=== PATIENT | male | born 1930 | race Caucasian/White ===

== ENCOUNTER 2016-07-14 16:31 | Inpatient (IN) | payer OTHER ==
[~2016-07-14] VITALS: Ht 175.3 cm; Wt 91.9 kg
--- NOTE | ~2016-07-14 | P ---
[facility] [place] [address] PROCEDURE REPORT Name: RAUL SAVAGE Room #: 209-P ADM IN M.R.#: [id number] Admission: 07/14/16 Attend Phys: Fiordaliza Clement Discharge: Date of : 31 Report #: [id number] THIS REPORT FOR: //name// CC: Farhat Freed CHIEF COMPLAINT: Nonhealing surgical wound, left medial thigh. REQUESTING PHYSICIAN: Dr. Padron. PROCEDURE: Incision and drainage of left medial thigh wound/abscess. REASON FOR PROCEDURE: The patient is status post coronary artery bypass grafting with vein harvesting in the left thigh, which subsequently became infected and a cellulitic with underlying purulent abscess, which was partially drained several days ago and now has significant tunnels both superior and inferior requiring further incision and drainage. PREPROCEDURE DIAGNOSES: 1. Nonhealing surgical wound, left medial thigh. 2. Status post vein harvest for coronary bypass grafting. 3. Status post vessel coronary bypass grafting. 4. History of left lower extremity cellulitis. PREPROCEDURE DIAGNOSES: 1. Nonhealing surgical wound, left medial thigh. 2. Status post vein harvest for coronary bypass grafting. 3. Status post vessel coronary bypass grafting. 4. History of left lower extremity cellulitis. PROCEDURE IN DETAIL: After timeout was taken, verbal consent was obtained. The patient had incision and drainage. both superiorly and inferiorly along the previous wound using a #10 blade. 1% lidocaine with epinephrine was used for anesthesia prior to an incision and drainage. The wound was extended 7 cm at 6 o'clock and 7 cm at 8. There was a small amount of purulent drainage noted underneath each tunnel. This was cleaned out using saline moistened gauze. There was also significant amount of granulation tissue within the wound bed itself. Bleeding was controlled easily with pressure and silver nitrate cauterization. The wound after the incision and drainage was 16 cm x 1.5 cm x 2.0 cm. The patient tolerated procedure well. After the procedure, the patient had the wound packed with pressure dressing, which will be left in place for next 24 hours in hopes getting a wound VAC placed within the next 1-2 days. ADDENDUM: After approximately 6 hours when packing and reevaluated the patient. The patient's wound was still clean, dry and dressing was intact. Once again, we will plan on hopefully the wound VAC placement in the next [address] [address] PROCEDURE REPORT Name: RAUL SAVAGE Room #: 209-P [facility] IN M.R.#: [id number] Admission: 07/14/16 Attend Phys: Fiordaliza Clement Discharge: Date of : 31 Report #: [id number] Incision and drainage was taken down to level of the subcutaneous tissue. <ELECTRONICALLY SIGNED> By: Byron Deng MD 07/25/16 1022 0757 1139 Byron Deng MD /[place]
--- NOTE | ~2016-07-14 | HC ---
[facility] [place] [address] CONSULTATION Name: RAUL SAVAGE Room #: 209-P [facility] IN M.R.#: [id number] Admission: 07/14/16 Attend Phys: Fiordaliza lCement Discharge: Date of : 31 Report #: [id number] THIS REPORT FOR: //name// CC: Farhat Freed REASON FOR CONSULTATION: I was asked to evaluate the patient concerning left leg vein harvest site infection. HISTORY OF PRESENT ILLNESS: The patient is an 86-year-old who underwent coronary bypass grafting on 06/27/2016. Subsequently, developed increased swelling and some drainage from his left leg harvest site. This did not improve with leg elevation. He was placed on oral antibiotics. He had aspiration of the fluid and some debridement of the left lower leg incision, but still did not improve and now hospitalized. He has had moderate amount of tenderness. Blood glucose readings have been less than 200. No fever or chills. ALLERGIES: ERYTHROMYCIN. MEDICATIONS: As noted on his MAR, including vancomycin and ceftazidime. PAST MEDICAL HISTORY: Angioplasty, coronary bypass grafting, TURP, pneumonia, hyperlipidemia, hypertension, diabetes, hypothyroidism, lumbar diskectomy, left knee scope, gastroesophageal reflux, excision of previous skin cancer. SOCIAL HISTORY: Nonsmoker, no significant alcohol intake. FAMILY HISTORY: Noncontributory. REVIEW OF SYSTEMS: No cough, sputum, nausea, vomiting, diarrhea, dysuria or frequency. PHYSICAL EXAMINATION: VITAL SIGNS: Afebrile, hemodynamically stable. GENERAL: Alert and oriented. No acute distress. HEENT: Unremarkable. Sternal incision well approximated. LUNGS: Few crackles in the left base posteriorly. HEART: Regular, without murmur. ABDOMEN: Soft, nontender, no hepatosplenomegaly or mass. EXTREMITIES: Left lower extremity had 2+ edema throughout and erythema from the ankle to the groin with large edematous erythematous and tender region around his incision. This has been opened up in the emergency room, it is putting out a large amount of seropurulent drainage. More fluctuant area was proximal to this incisional wound. The lower leg wounds by the ankle were open, had been previously debrided. Surrounding erythema. No purulent drainage. LABORATORY STUDIES: Urinalysis unremarkable. Creatinine 2.7. Sodium 131, potassium 4.3, bicarbonate 22. Liver function tests normal. Albumin 2.7, [address] [address] CONSULTATION Name: RAUL SAVAGE Room #: 209-P ADM IN M.R.#: [id number] Admission: 07/14/16 Attend Phys: Fiordaliza Clement Discharge: Date of : 31 Report #: [id number] hemoglobin 11.5, white count 12.6, platelet count 321,000 and differential 79% segs. Ultrasound of the veins and ultrasound of artery showed no obstruction. Chest x-ray, left basilar atelectasis. IMPRESSION: Surgical site infection, left leg vein harvest site. Acute renal failure with baseline creatinine of 1.4, diabetes, coronary artery disease. RECOMMENDATION: We will treat for nosocomial organisms including MRSA and pseudomonas pending culture results. We will adjust his antibiotics according to his renal function. Continue with dressing changes. The upper thigh may need further debridement, but Dr. Garcia has already seen the patient and will follow along. <ELECTRONICALLY SIGNED> By: Devan Freed MD 07/15/16 0923 [id number] 0252 Devan Freed MD /nt
--- NOTE | ~2016-07-14 | HC ---
[facility] [place] [address] CONSULTATION Name: RAUL SAVAGE Room #: 209-P ADM IN M.R.#: [id number] Admission: 07/14/16 Attend Phys: Fiordaliza Clement Discharge: Date of : 31 Report #: [id number] THIS REPORT FOR: //name// CC: Farhat Freed DATE OF SERVICE: 07/15/2016 REASON FOR CONSULTATION: Elevated creatinine level. HISTORY OF PRESENT ILLNESS: This is an 86-year-old male who is 6 weeks post having had a 4-vessel CABG done here at [facility]. That original postoperative course was fairly uneventful. He did run some elevated creatinines during that hospital stay between 1.4 and 1.7; it was 1.4 at the time of discharge. He had developed some erythema of his left leg and concern of infection involving his vein harvest site wounds. He was admitted to the hospital yesterday for treatment of that. He has been put on antibiotics including vancomycin and ceftazidime. He has been afebrile at this time. He did have a couple of chills. He had some leukocytosis on admission with a white count of 12.6; it has dropped to 10.1 today. He says his legs are about the same as what they had had been. It was also noted on admission that his creatinine level was more elevated; yesterday it was a BUN of 60, creatinine of 2.7, it is improved today to 49 and 2.2 respectively. Potassium has been good, he has not been particularly acidotic. He reports no difficulty voiding urine. He has a urinal next to his bed that has a fair amount of light yellow urine present. He reports no dysuria. No hematuria has been noted, no history of stone disease or urinary tract infections. He had a TUR of the prostate done many years ago and states he still voids fairly well. The patient has been on some lisinopril and it looks like this was just started at the end of his most recent hospitalization. He was not on lisinopril prior to his coronary artery bypass graft surgery. He also takes Celebrex on a daily basis for some diffuse arthralgias, he was on that prior to coming into the hospital yesterday. He did get the lisinopril, but he has not received the Celebrex since admission. Currently, he reports no urinary symptoms. PAST MEDICAL HISTORY: Atherosclerotic coronary artery disease. He had 4-vessel coronary artery bypass graft surgery on 05/30/2016; he was discharged on 06/03/2016. He had some prior coronary stents, he has a history of hypertension, he also has some type 2 diabetes, he is hypothyroid, . MEDICATIONS ON ADMISSION: This hospitalization: Metoprolol 50 mg daily, lisinopril 10 mg daily, aspirin 81 mg daily, Lipitor 40 mg daily, amiodarone 200 mg b.i.d., glyburide 5 mg b.i.d., multivitamin daily, Prilosec 20 mg daily and Synthroid 0.05 mg daily. ALLERGIES: ERYTHROMYCIN which causes throat swelling and difficulty breathing. [address] [address] CONSULTATION Name: RAUL SAVAGE Room #: 209-P [facility] IN M.R.#: [id number] Admission: 07/14/16 Attend Phys: Fiordaliza Clement Discharge: Date of : 31 Report #: [id number] FAMILY HISTORY: Negative for any renal disease. SOCIAL HISTORY: The patient is ; he lives in [place], [place]. He has been retired for many years. Unfortunately, his has been ill and is in with pneumonia and actually in the Intensive Care Unit at this time. REVIEW OF SYSTEMS: He states his appetite has been moderate since his surgery. He says he has been going to his therapy and rehabilitation, he has been getting stronger. He has mild dyspnea. He does not have much in the way of postoperative chest pain. Denies nausea or vomiting. Says he tends towards constipation. Denies any dysuria, urgency or frequency. He is unaware of fevers, but did have a chill. erythema and swelling of his legs as noted above. PHYSICAL EXAMINATION: GENERAL: A very pleasant elderly male, awake and alert, responsive at this time. VITAL SIGNS: Most recent blood pressure 106/57, heart rate 67, temperature 98.1, oxygen saturation 98%. He has had blood pressure recorded as low as 93/49. HEENT: Shows pupils are equal and reactive. Sclerae are nonicteric. Oral mucosa is moist. NECK: Veins are not distended. I hear no bruits. CHEST: Fairly clear bilaterally, slight decrease in the breath sounds in the bases, sternal incision appears to be healing well. HEART: Has a regular rate and rhythm. ABDOMEN: Has active bowel sounds, soft, nontender at this time. No organomegaly or masses are palpable. I hear no bruits. EXTREMITIES: Show erythema of the left thigh and left leg. All these areas have been demarcated with a line. There are some dressings I did not take off. There is some brawny edema associated with these erythematous changes. The right leg is much less involved. LABORATORY DATA: Today sodium 136, potassium 4.1, chloride 105, bicarbonate 20, BUN 49, creatinine 2.2, glucose 82, calcium 8.9. White count 10.1, hemoglobin 10.3, hematocrit 30.3, platelets 309,000. Urinalysis from admission: Specific gravity of less than 1.005, pH 5.0, negative dipstick, negative microscopic exam. ASSESSMENT: 1. Acute kidney injury on top of chronic kidney disease. He runs a baseline creatinine of about 1.5, he went up significantly higher than that, I think this is related to his infection/cellulitis at his vein harvest sites, those appear to be quite involved. He has some borderline hypotension at this time, he has been on some lisinopril, but it looks like that was just started 6 weeks ago. I will stop it at least temporarily, last blood pressure has come up somewhat [facility] [address] [place] [address] CONSULTATION Name: RAUL SAVAGE Marcelo Room #: 209-P [facility] IN .R.#: [id number] Admission: 07/14/16 Attend Phys: Fiordaliza Clement Discharge: Date of : 31 Report #: [id number] better and I expect he will show improvement. He does not appear to be obstructed. He is voiding readily. We will continue him on a bit of IV fluids and as long as his cellulitis improves, I expect his renal function will continue to improve. His electrolytes are not particularly problematic at this time, volume status is okay, I have reviewed all this with him. 2. Chronic kidney disease stage 3, baseline creatinine level of about 1.5. Many years ago, he had a renal ultrasound that is on the computer system, there is at least one fairly large acquired cyst, but no other changes. 3. Six weeks post coronary artery bypass graft surgery, doing well. 4. Cellulitis wound infection of left leg from vein harvest site, on vancomycin, which can be continued as well as ceftazidime. PLAN: 1. Continue IV normal saline 75 mL per hour. 2. For this time, I will hold his lisinopril. 3. Continue antibiotics. 4. We will repeat labs in the morning. 5. I expect this to have a fairly quick turnaround from a renal standpoint. <ELECTRONICALLY SIGNED> By: Mitchel Mares MD 07/17/16 [phone] Mitchel Mares MD /nt
--- NOTE | ~2016-07-14 | H ---
[facility] [address] HISTORY AND PHYSICAL Name: RAUL SAVAGE Room #: 209-P ADM IN M.R.#: [id number] Admission: 07/14/16 Attend Phys: Fiordaliza Clement Discharge: Date of : 31 Report #: [id number] THIS REPORT FOR: //name// CC: Farhat Freed DATE OF SERVICE: 07/14/2016 CHIEF COMPLAINT: Pain, redness and swelling in the left leg. HISTORY OF PRESENT ILLNESS: The patient is an 86-year-old gentleman who underwent cardiac bypass about 6 weeks ago, was presented to the Emergency Room with pain, redness and swelling of the left leg. He was assessed in Dr. Padron office and surgical wound was unpacked revealing redness, erythema and some drainage and there was a firm area on the upper in the left thigh from the vein graft harvest sites. He was admitted for IV antibiotics and medical treatment. PAST MEDICAL HISTORY: Coronary artery disease with recent cardiac bypass. About a month ago, has had previous cardiac stents, also has a history of hypertension, diabetes type 2, hypothyroid, chronic kidney disease. PAST SURGICAL HISTORY: As above. FAMILY HISTORY: Noncontributory. SOCIAL HISTORY: He is , lives with his . No chronic alcohol or tobacco use. ALLERGIES: ERYTHROMYCIN. MEDICATIONS: Metoprolol 50 mg, Tylenol, iron, amiodarone 200 mg b.i.d. Zestril 10 mg, aspirin 81 mg, Lipitor 40 mg, glyburide 5 mg b.i.d., multivitamin, Prilosec 20 mg, Synthroid 50 mcg, it was unclear whether he was using Celebrex at home. REVIEW OF SYSTEMS: He denies headache, chest pain, shortness of breath, abdominal pain, nausea, vomiting, diarrhea, constipation, dysuria, syncope. OBJECTIVE: VITAL SIGNS: Temperature 36.7, pulse , respirations 16, blood pressure 109/57, O2 sat 98% on room air. GENERAL: He is awake and alert, lying in bed. He is alert to place and situation, recognizes me. LUNGS: Clear. HEART: Regular. ABDOMEN: Soft, normoactive bowel sounds. EXTREMITIES: No edema on the right, the left leg surgical sites are dressed. [address] [address] HISTORY AND PHYSICAL Name: RAUL SAVAGE Room #: 209-P [facility] IN M.R.#: [id number] Admission: 07/14/16 Attend Phys: Fiordaliza Clement Discharge: Date of : 31 Report #: [id number] There is some faint erythema, which looks improved overnight from the markings down through ER. LABORATORY DATA: White cell count is back to 10 from 12, hemoglobin 10, creatinine 2.2 down from 2.7. ASSESSMENT: 1. Cellulitis of the left leg. 2. Incisional wound, left leg. 3. Coronary artery disease with recent cardiac bypass about 4 weeks ago. 4. Diabetes type 2. 5. Chronic kidney disease, stage 3 with an acute component. 6. Hypertension. 7. Anemia of chronic disease. PLAN: I will continue IV fluids for now to support his renal function and try to minimize his other medications including discontinuing Celebrex I was not clear whether he was using this at home and Protonix for now, I think his metoprolol dose could be decreased based on his readings. Dr. Devan Freed has assessed him and antibiotics have been ordered accordingly. <ELECTRONICALLY SIGNED> By: Lemuel Gomez MD 07/15/16 1252 0914 1007 Lemuel Gomez MD /nt
--- NOTE | ~2016-07-14 | HC ---
[facility] [place] [address] CONSULTATION Name: RAUL SAVAGE Room #: 209-P ADM IN M.R.#: [id number] Admission: 07/14/16 Attend Phys: Fiordaliza Clement Discharge: Date of : 31 Report #: [id number] THIS REPORT FOR: //name// CC: Farhat Freed HISTORY OF PRESENT ILLNESS: The patient was an 86-year-old white male who had a coronary artery bypass grafting approximately 6 weeks ago. He initially was doing quite well, was discharged ambulating 300 feet without a device. He started developing worsening pain and swelling of that left leg and drainage from the left thigh. He was readmitted and noted to have cellulitis of the left leg with an incisional wound/surgical wound. He was noted to have surgical site infections, both of the left thigh and the left medial calf. He underwent opening of the incision with drainage and is on IV antibiotics. He is being monitored regarding chronic kidney disease. We are seeing him in rehabilitation medicine consultation. PAST MEDICAL HISTORY: Includes the prior coronary artery bypass graft surgery. He has a history of prior cardiac stents, hypertension, diabetes mellitus type 2, and chronic kidney disease. MEDICATIONS: Please see the full medication listing. ALLERGIES: ERYTHROMYCIN. FAMILY HISTORY: Noncontributory. SOCIAL HISTORY: He lives in a house with his . This is a split level house with five levels in actuality. His has been in the intensive care unit with the pneumonia and is going to [facility] per the son. REVIEW OF SYSTEMS: Did not offer any current complaints of chest pain, shortness of breath or abdominal discomfort. PHYSICAL EXAMINATION: GENERAL: An 86-year-old white male, in no obvious distress. He is alert, pleasant, and oriented. VITAL SIGNS: Last recorded temperature is 97.5, pulse 60, respirations 16, and blood pressure 121/50. HEENT: Appeared to be benign. Cranial nerves are grossly intact. Facies are symmetric. EXTREMITIES: He has functional range of motion of both upper extremities with strength a grade 4-/5. DTRs are 1. Lower extremities, functional range of motion of the right lower extremity with good strength at least a grade 4 to 4-/5. Left lower extremity reveals the dressings in place with packing and gauze wrap over the left medial thigh as well as dressing over the left medial ankle. He is able to dorsiflex the left foot. He appears to have reasonable strength of that left lower extremity, nevertheless probably a grade 4- to 3+/5. [address] [address] CONSULTATION Name: RAUL SAVAGE Room #: 209-P [facility] IN .R.#: [id number] Admission: 07/14/16 Attend Phys: Fiordaliza Clement Discharge: Date of : 31 Report #: [id number] Tone appeared to be intact. ASSESSMENT: An 86-year-old white male with the following problem list: 1. Cellulitis of the left leg with a surgical site incision from the left leg harvest. 2. Status post coronary artery bypass grafting approximately 6 weeks ago. 3. Chronic kidney disease stage 3. 4. Previous cardiac stents. 5. Diabetes mellitus type 2. 6. Hypertension. PLAN: Physical therapy and occupational therapy evaluations are underway. Insurance will need to be checked regarding rehab therapy options. We will be glad to follow along with you. ADDENDUM: Discussion was held with the patient's son. <ELECTRONICALLY SIGNED> By: Lemuel Suggs MD 07/25/16 1054 1509 2117 Lemuel Suggs MD /nt
[~2016-07-14 16:31] MED LIST: ASPIR 8181 MG PO; ASPIRIN325 PO; ATORVASTATIN CA40 MG PO; CELEBREX 200 M200 M1 PO; CENTRUM SILVER1 EAC2 PO; FERREX 150 PLU1 EAC1 PO; GLYBURIDE 2.52.5 MG PO; GLYBURIDE 5 MG T5 M1 PO; IMDUR 60 MG TAB60 M1 PO; LEVOTHYROXINE0.05 MG PO; LISINOPRIL10 MG PO; METOPROLOL SUCC50 MG PO; OMEPRAZOLE20 M2 PO; PACERONE 200 M200 M1 PO; PAIN & FEVER325 MG PO; TOPROL XL100 MG PO; TYLENOL PM EX-1 EACH PO
[2016-07-14 16:32] VITALS: BP 127/97
[2016-07-14 18:34] LABS: HEMATOCRIT 33.9 % (42.0-52.0); HEMOGLOBIN 11.5 gm/dL (14.0-18.0); MANUAL DIFF YES; MCH 30.8 pg (26.0-34.0); MCHC 33.8 g/dL (28.0-37.0); MCV 91.2 fL (80.0-100.0); PLATELET COUNT 321 thou/uL (150-400); RBC 3.72 mil/uL (4.50-6.00); RDW 13.9 % (10.5-14.5); WBC 12.6 thou/uL (4.0-11.0)
[2016-07-14 18:44] LABS: CALCIUM 9.4 mg/dL (8.5-10.1); CREATININE 2.7 mg/dL (0.6-1.3); POTASSIUM 4.3 mmol/L (3.5-5.1)
[2016-07-14 18:51] LABS: TOTAL CELL COUNT 100
[2016-07-14 19:00] LABS: ALBUMIN 2.7 g/dL (3.4-5.0); DIRECT BILIRUBIN 0.1 mg/dL (<0.1-0.3); TOTAL BILIRUBIN 0.4 mg/dL (<0.1-1.0); TOTAL PROTEIN 6.9 g/dL (6.4-8.2)
[2016-07-14 19:31] LABS: URINE BILIRUBIN NEGATIVE (Negative); URINE BLOOD NEGATIVE (Negative); URINE COLOR YELLOW; URINE GLUCOSE-RANDOM* NEGATIVE (Negative); URINE KETONES NEGATIVE (Negative); URINE NITRITE NEGATIVE (Negative); URINE PROTEIN (DIPSTICK) NEGATIVE (Negative); URINE SPECIFIC GRAVITY <= 1.005 (1.003-1.035); URINE UROBILINOGEN 0.2 E.U./dl (0.2-1.0)
[2016-07-14 20:23] VITALS: BP 129/55
[2016-07-14 20:34] VITALS: BP 118/62
[2016-07-14 20:40] VITALS: BP 118/62
[2016-07-15] VITALS: BP 122/65
[2016-07-15 04:16] LABS: CALCIUM 8.9 mg/dL (8.5-10.1); CREATININE 2.2 mg/dL (0.6-1.3); POTASSIUM 4.1 mmol/L (3.5-5.1)
[2016-07-15 04:32] LABS: ABSOLUTE NEUTROPHILS 6.9 thou/uL (1.4-8.2); BASOPHILS 0.6 % (0.0-2.0); HEMATOCRIT 30.3 % (42.0-52.0); HEMOGLOBIN 10.3 gm/dL (14.0-18.0); LYMPHOCYTES 10.3 % (24.0-44.0); MCHC 33.8 g/dL (28.0-37.0); MCV 91.5 fL (80.0-100.0); MONOCYTES 10.6 % (1.0-8.0); PLATELET COUNT 309 thou/uL (150-400); POLYS 68.5 % (36.0-66.0); RBC 3.31 mil/uL (4.50-6.00); WBC 10.1 thou/uL (4.0-11.0)
[2016-07-15 04:42] LABS: MANUAL DIFF NO
[2016-07-15 05:00] VITALS: BP 93/49
[2016-07-15 08:00] VITALS: BP 109/57
[2016-07-15 12:00] VITALS: BP 99/51
[2016-07-15 15:40] VITALS: BP 102/52
[2016-07-15 19:55] VITALS: BP 135/57
[2016-07-16 03:06] LABS: HEMATOCRIT 30.3 % (42.0-52.0); HEMOGLOBIN 10.4 gm/dL (14.0-18.0); MCH 31.2 pg (26.0-34.0); MCHC 34.1 g/dL (28.0-37.0); MCV 91.6 fL (80.0-100.0); RBC 3.31 mil/uL (4.50-6.00); RDW 13.8 % (10.5-14.5); WBC 8.8 thou/uL (4.0-11.0)
[2016-07-16 03:23] LABS: CALCIUM 8.7 mg/dL (8.5-10.1); CREATININE 1.7 mg/dL (0.6-1.3); POTASSIUM 4.5 mmol/L (3.5-5.1)
[2016-07-16 04:32] VITALS: BP 114/61
[2016-07-16 07:35] VITALS: BP 113/53
[2016-07-16 11:25] VITALS: BP 120/56
[2016-07-16 15:20] VITALS: BP 113/57
[2016-07-16 20:20] VITALS: BP 140/57
[2016-07-16 23:59] VITALS: BP 131/61
[2016-07-17 04:21] LABS: CALCIUM 8.8 mg/dL (8.5-10.1); CREATININE 1.6 mg/dL (0.6-1.3); POTASSIUM 4.6 mmol/L (3.5-5.1)
[2016-07-17 04:43] VITALS: BP 119/63
[2016-07-17 07:50] VITALS: BP 128/65
[2016-07-17 11:35] VITALS: BP 118/62
[2016-07-17 16:00] VITALS: BP 118/60
[2016-07-17 19:52] VITALS: BP 116/56
[2016-07-18 04:22] VITALS: BP 140/68
[2016-07-18 07:45] VITALS: BP 126/81
[2016-07-18 08:15] LABS: HEMATOCRIT 33.1 % (42.0-52.0); HEMOGLOBIN 11.2 gm/dL (14.0-18.0); MCH 30.7 pg (26.0-34.0); MCHC 33.9 g/dL (28.0-37.0); MCV 90.6 fL (80.0-100.0); RBC 3.65 mil/uL (4.50-6.00); WBC 8.8 thou/uL (4.0-11.0)
[2016-07-18 08:27] LABS: CALCIUM 9.1 mg/dL (8.5-10.1); CREATININE 1.4 mg/dL (0.6-1.3)
[2016-07-18 08:30] LABS: ALBUMIN 2.4 g/dL (3.4-5.0); PHOSPHORUS 4.4 mg/dL (2.5-4.9)
[2016-07-18 10:55] VITALS: BP 121/50
[2016-07-18 16:45] VITALS: BP 118/32
[2016-07-18 19:14] VITALS: BP 111/60
[2016-07-19 03:03] VITALS: BP 143/69
[2016-07-19 03:33] LABS: ALBUMIN 2.6 g/dL (3.4-5.0); CALCIUM 9.2 mg/dL (8.5-10.1); CREATININE 1.6 mg/dL (0.7-1.3); PHOSPHORUS 4.4 mg/dL (2.5-4.9); POTASSIUM 4.4 mmol/L (3.5-5.1)
[2016-07-19 07:30] VITALS: BP 147/65
[2016-07-19 11:30] VITALS: BP 127/54
[2016-07-19 15:25] VITALS: BP 124/56
[2016-07-19 20:17] VITALS: BP 129/63
[2016-07-20 04:00] VITALS: BP 113/51
[2016-07-20 04:47] LABS: ALBUMIN 2.6 g/dL (3.4-5.0); CALCIUM 8.9 mg/dL (8.5-10.1); CREATININE 1.9 mg/dL (0.7-1.3); PHOSPHORUS 4.4 mg/dL (2.5-4.9); POTASSIUM 4.8 mmol/L (3.5-5.1)
[2016-07-20 07:30] VITALS: BP 130/68
[2016-07-20 11:30] VITALS: BP 111/46
[2016-07-20 15:41] VITALS: BP 101/50
[2016-07-20 19:52] VITALS: BP 133/71
[2016-07-21 04:51] VITALS: BP 139/61
[2016-07-21 06:21] LABS: ALBUMIN 2.8 g/dL (3.4-5.0); CALCIUM 9.2 mg/dL (8.5-10.1); CREATININE 1.8 mg/dL (0.7-1.3); PHOSPHORUS 4.7 mg/dL (2.5-4.9); POTASSIUM 4.6 mmol/L (3.5-5.1)
[2016-07-21 07:35] VITALS: BP 141/67
[2016-07-21 11:35] VITALS: BP 102/53
[2016-07-21 15:10] VITALS: BP 124/63
[2016-07-21 20:45] VITALS: BP 113/56
[2016-07-21 23:44] VITALS: BP 130/60
[2016-07-22 03:45] VITALS: BP 129/53
[2016-07-22 08:20] VITALS: BP 121/83
[2016-07-22 11:44] VITALS: BP 123/54
[2016-07-22 15:15] VITALS: BP 110/56
[2016-07-22 20:43] VITALS: BP 111/41
[2016-07-22 23:25] VITALS: BP 118/67
[2016-07-23 03:49] LABS: CALCIUM 9.1 mg/dL (8.5-10.1); CREATININE 1.7 mg/dL (0.7-1.3); POTASSIUM 4.6 mmol/L (3.5-5.1)
[2016-07-23 05:24] VITALS: BP 129/60
[2016-07-23 08:00] VITALS: BP 119/55
[2016-07-23 12:00] VITALS: BP 109/53
[2016-07-23 20:04] VITALS: BP 98/53
[2016-07-23 22:30] VITALS: BP 98/53
[2016-07-24 04:05] VITALS: BP 153/69
[2016-07-24 08:00] VITALS: BP 125/55
[2016-07-24 12:20] VITALS: BP 99/58
[2016-07-24 16:50] VITALS: BP 114/40
[2016-07-24 20:18] VITALS: BP 118/50
[2016-07-25 04:00] VITALS: BP 98/47
[2016-07-25 12:00] VITALS: BP 119/71
[2016-07-25] MEDS ORDERED: KEFLEX500 MG PO (14:35)
[2016-07-25 14:41] LABS: CALCIUM 8.9 mg/dL (8.5-10.1); CREATININE 1.6 mg/dL (0.7-1.3)
[2016-07-25 14:44] LABS: ALBUMIN 3.1 g/dL (3.4-5.0); PHOSPHORUS 3.8 mg/dL (2.5-4.9)
[2016-07-25 14:48] VITALS: BP 119/71
[2016-07-25 16:05] VITALS: BP 123/47
[2016-07-25 17:08] VITALS: BP 119/71
== END 2016-07-25 17:24 | disposition home health service (06) | DRG 862 ==
LOC: ER 16:31 → EROBS 18:16 → 2N 18:16
PROVIDERS: Hospitalist; Internal Medicine; Internal Medicine Geriatric Medicine; Internal Medicine Nephrology; Nurse Practitioner; Specialist
PROC: 0J9M3ZZ Drainage of Left Upper Leg Subcutaneous Tissue and Fascia, Percutaneous Approach (ICD-10-PCS; principal; 2016-07-22)
DX: T81.4XXA Infection following a procedure, initial encounter (principal); E43 Unspecified severe protein-calorie malnutrition; E87.1 Hypo-osmolality and hyponatremia; L03.116 Cellulitis of left lower limb; N17.9 Acute kidney failure, unspecified; I13.0 Hypertensive heart and chronic kidney disease with heart failure and stage 1 through stage 4 chronic kidney disease, or unspecified chronic kidney disease; E78.5 Hyperlipidemia, unspecified; E03.9 Hypothyroidism, unspecified; I25.10 Atherosclerotic heart disease of native coronary artery without angina pectoris; E11.22 Type 2 diabetes mellitus with diabetic chronic kidney disease; N18.3 Chronic kidney disease, stage 3 (moderate); I50.9 Heart failure, unspecified; K21.9 Gastro-esophageal reflux disease without esophagitis; D63.8 Anemia in other chronic diseases classified elsewhere; D72.829 Elevated white blood cell count, unspecified; Z95.5 Presence of coronary angioplasty implant and graft; Z85.828 Personal history of other malignant neoplasm of skin; Z88.1 Allergy status to other antibiotic agents; Z95.1 Presence of aortocoronary bypass graft; Z68.29 Body mass index [BMI] 29.0-29.9, adult; Z79.82 Long term (current) use of aspirin; Z79.899 Other long term (current) drug therapy; B95.61 Methicillin susceptible Staphylococcus aureus infection as the cause of diseases classified elsewhere
CPT/HCPCS: 10081; 56524

== ENCOUNTER → 2016-08-03 | Outpatient (CLI) | payer OTHER ==
[~2016-08-03] MED LIST changes: +KEFLEX500 MG PO
== END ==
LOC: HYPER 07:01
DX: T81.89XA Other complications of procedures, not elsewhere classified, initial encounter (principal); L03.116 Cellulitis of left lower limb; E03.9 Hypothyroidism, unspecified; I25.2 Old myocardial infarction; E78.5 Hyperlipidemia, unspecified; M19.90 Unspecified osteoarthritis, unspecified site; E11.22 Type 2 diabetes mellitus with diabetic chronic kidney disease; I12.9 Hypertensive chronic kidney disease with stage 1 through stage 4 chronic kidney disease, or unspecified chronic kidney disease; N18.9 Chronic kidney disease, unspecified; Z72.89 Other problems related to lifestyle; Z85.828 Personal history of other malignant neoplasm of skin; Z95.1 Presence of aortocoronary bypass graft; Z87.01 Personal history of pneumonia (recurrent); Y83.8 Other surgical procedures as the cause of abnormal reaction of the patient, or of later complication, without mention of misadventure at the time of the procedure

== ENCOUNTER → 2016-08-24 | Outpatient (CLI) | payer OTHER | LOC: HYPER 07:04 | DX: T81.89XD Other complications of procedures, not elsewhere classified, subsequent encounter (principal); I25.83 Coronary atherosclerosis due to lipid rich plaque; E03.9 Hypothyroidism, unspecified; I25.2 Old myocardial infarction; E78.5 Hyperlipidemia, unspecified; M19.90 Unspecified osteoarthritis, unspecified site; E11.22 Type 2 diabetes mellitus with diabetic chronic kidney disease; I12.9 Hypertensive chronic kidney disease with stage 1 through stage 4 chronic kidney disease, or unspecified chronic kidney disease; N18.9 Chronic kidney disease, unspecified; Z95.1 Presence of aortocoronary bypass graft; Z72.89 Other problems related to lifestyle; Z86.14 Personal history of Methicillin resistant Staphylococcus aureus infection; Y83.8 Other surgical procedures as the cause of abnormal reaction of the patient, or of later complication, without mention of misadventure at the time of the procedure ==

== ENCOUNTER 2017-11-01 23:04 | Inpatient (IN) | payer OTHER ==
[~2017-11-01] VITALS: Ht 175.3 cm; Wt 96.6 kg
--- NOTE | ~2017-11-01 | D ---
[facility] [place] [address] DISCHARGE SUMMARY Name: RAUL SAVAGE Room #: 210-P [facility] IN M.R.#: [id number] Admission: 11/02/17 Attend Phys: Fiordaliza Clement Discharge: 11/03/17 Date of : 31 Report #: [id number] THIS REPORT FOR: //name// CC: Farhat Freed FINAL DIAGNOSES: 1. Non-ST elevation myocardial infarction. 2. Coronary artery disease. 3. Diabetes type 2. PROCEDURES: Cardiac catheterization with stent placement. HOSPITAL COURSE: The patient was admitted with chest pain and ruled in for NSTEMI. Dr. Graff took him to the landscape laborer and a stent was placed. Please see that dictated report. He tolerated the procedure well without incident. Usual medicines were continued plus Brilinta. PHYSICAL EXAMINATION: GENERAL: The following day, he was awake and alert, in no distress. VITAL SIGNS: Stable. Reviewed electronically. LUNGS: Clear. HEART: Regular. ABDOMEN: Soft, normoactive bowel sounds. EXTREMITIES: No edema. DISPOSITION: He will be discharged to home with diet and activity as tolerated, resume all home medications with the exception of Celebrex and he has added Brilinta. Follow up with Dr. Graff as directed, Dr. Freed in 6 weeks. <ELECTRONICALLY SIGNED> By: Lemuel Gomez MD 11/06/17 1104 1037 1142 Lemuel Gomez MD /[place]
--- NOTE | ~2017-11-01 | EKG ---
[place] [address] [facility] [place] [address] ELECTROCARDIOGRAM REPORT Name: RAUL SAVAGE Room #: 210-P ADM IN M.R.#: [id number] Admission: 11/02/17 Attend Phys: Fiordaliza Clement Discharge: Date of : 31 Report #: [id number] THIS REPORT FOR: //name// [facility] Test Date: 2017-11-03 Test Time: 06:29:25 Pat Name: RAUL SAVAGE Department: Room: 210 P Gender: M Structural Steel Painter: RUIZ : 1930 Requested By: Ed Graff Order Number: [id number] MD: Ed Graff Measurements Intervals [place] Rate: 72 P: 41 GA: 176 QRS: -74 QRSD: 133 T: 112 QT: 422 QTc: 462 Interpretive Statements Sinus rhythm Left bundle branch block Baseline wander in lead(s) V4 Compared to ECG 06/03/2016 06:50:42 No significant changes Electronically Signed On 11-03-2017 8:53:21 CDT by Ed Graff [email or web address] <ELECTRONICALLY SIGNED> By: Ed Graff MD, [facility] 11/03/17 0853 0629 Ed Graff MD, [facility] /EPI
--- NOTE | ~2017-11-01 | EKG ---
[place] [address] [facility] [place] [address] ELECTROCARDIOGRAM REPORT Name: RAUL SAVAGE Room #: 210-P ADM IN M.R.#: [id number] Admission: 11/02/17 Attend Phys: Fiordaliza Clement Discharge: Date of : 31 Report #: [id number] THIS REPORT FOR: //name// [facility] ED Test Date: 2017-11-01 Test Time: 23:11:39 Pat Name: RAUL SAVAGE Department: Room: Gender: M Resolution Analyst: FRANKLIN : 1930 Requested By: Devan Bruner Order Number: [id number] MD: Ed Graff Measurements Intervals [place] Rate: 80 P: 38 KS: 184 QRS: -63 QRSD: 137 T: 109 QT: 426 QTc: 492 Interpretive Statements Sinus rhythm Probable left atrial enlargement Left bundle branch block Compared to ECG 06/03/2016 06:50:42 No significant changes Electronically Signed On 11-03-2017 8:42:00 CDT by Ed Graff [email or web address] <ELECTRONICALLY SIGNED> By: Ed Graff MD, [facility] 11/03/17 0842 231 10 Ed Graff MD, [facility] /EPI
--- NOTE | ~2017-11-01 | CATHLAB ---
[facility] [address] [place] [address] INVASIVE PROCEDURE REPORT Name: RAUL SAVAGE Room #: 210-P [facility] IN ..#: [id number] Admission: 11/02/17 Attend Phys: Farhat Biggs Discharge: Date of : 31 Date of Service: 11/03/17 0817 Report #: [id number] THIS REPORT FOR: //name// APPROVED REPORT Study performed: 11/02/2017 07:19:05 Patient Details Patient Status: In-Patient Room #: The patient is a 87 year-old male Event Personnel Ed Graff Wwe Wrestler, Calderon Ramos RN, Charlette Howard RTR, SCOTTY Aquino, Lemuel Hay Monitor, Steve Brantley RN gallery intern Performed Left Heart Cath Coronaries, Bypass Grafts 5480551 LHCCORCABG MARIANO Revasc Graft Single CIRC C9604 SVGREVSING Indication Non-STEMI (>12 hrs to = 24 hrs), Chest pain Procedure Narrative The Right Groin^ was infiltrated with 1% Lidocaine subcutaneous anesthesia. A PINNACLE 6FR Sheath #[id number] sheath was inserted into the RFA^. Coronary angiography was performed using coronary diagnostic catheters. The right coronary system was accessed and visualized with a JR4 catheter. The left coronary system was accessed and visualized with a JL3.5 catheter. Closure device was deployed with a 6 Fr MYNXGRIP 6/7F #[id number]. There was no hematoma. Intraoperative Conscious Sedation Sedation start time: 7.42 Case end Time: 915 Fentanyl 50 mcg Versed 1.5 mg Fluoro Time: 14.21 minutes Dose: DAP 51581 cGycm2 2034 mGy Contrast Type and Amount: Visipaque 290 ml Diagnostic Cath Left Main 85% distal left main stenosis LAD The LAD was occluded at the first septal perforating branch. [facility] [place] [place] [address] INVASIVE PROCEDURE REPORT Name: RAUL SAVAGE Room #: 210-P [facility] IN .R.#: [id number] Admission: 11/02/17 Attend Phys: Farhat Biggs Discharge: Date of : 31 Date of Service: 11/03/17 0817 Report #: [id number] Patent MENDEZ to LAD Circumflex Critical 99% ostial stenosis of the dominant circumflex Severe proximal 99% anastomatic stenosis in sequential vein graft from D1 to OM branch OM1 Mild to moderate plaquing L PDA Mild to moderate plaquing Occluded SVG to PDA Right Coronary Relatively small, nondominant right coronary with scattered 30-40% proximal to mid vessel plaquing Left Ventriculography The left ventricle is normal in size with normal contractility. The left ventricular ejection fraction is estimated to be 45-50%. Left ventricular wall motion abnormalities are present. There is 1+ mitral insufficiency. Mild hypokinesis involving base of the inferior wall Hemodynamics The aortic pressure is 131/70 mmHg with a mean of 91 mmHg. The left ventricular pressure is 133/16 mmHg with a mean of mmHg. The left ventricular end diastolic pressure is 24 mmHg. PCI Technique Lesion Anticoagulation was achieved with Heparin, Integrilin. Patient was preloaded with Brillinta. Percutaneous coronary intervention was performed on the sequential SVG to D! and circumflex. The lesion stenosis prior to intervention was 99% with ELIECER 3 flow. A LAUNCHER 6FR JR 4 #[id number] Guide Catheter was used to engage the ostium. A Luge Wire .014 x 182CM #[id number] Interventional Guidewire was used to cross the lesion. BALLOON DILATION A Balloon catheter Euphora RX 3.0 x 12 #[id number] was inserted and inflated up to 8.00atm for 22seconds. Repeat angiography revealed the following post-dilatation results: Moderate residual stenosis. Additional Inflation: 6.00atm for 11seconds. Additional Inflation: 18.00atm for 50seconds. STENT DEPLOYMENT A drug-eluting stent RESOLUTE RX 3.0 X 15 #[id number] was inserted and inflated up to 20.00atm for 30seconds. Repeat angiography revealed the following post-stent deployment results: mild mid-stent "waist". POST STENT DEPLOYMENT BALLOON DILATION [facility] [address] [place] [address] INVASIVE PROCEDURE REPORT Name: RAUL SAVAGE Room #: 210-P [facility] IN M.R.#: [id number] Admission: 11/02/17 Attend Phys: Farhat Biggs Discharge: Date of : 32 Date of Service: 11/03/17 0817 Report #: [id number] A Balloon catheter TREK NC RX 3.5 X 15 #[id number] was inserted and inflated up to 22.00atm for 45seconds. Additional Inflation: 22.00atm for 36seconds. Final angiography reveals 5 % stenosis with ELIECER 3 flow. Conclusion 1. Severe [place] coronary artery disease. Circumflex dominant 2. Patent MENDEZ to LAD 3. 99% proximal anastomotic stenosis of sequential SVG to D1 then circumflex, stented with 3.0 x 15 Resolute stent, post-dilated to 3.6mm 4. Occluded SVG to PDA 5. Mild LV dysfunction with hypokinesis involving base of inferior wall Recommendations Daily ASA with Plavix for at least one year Cardiac Rehabilitation Referral Aggressive Medical Therapy <ELECTRONICALLY SIGNED> By: Ed Graff MD, FACC 11/03/17816 6 6 Ed Graff MD, FACC /INF
--- NOTE | ~2017-11-01 | EKG ---
[address] [place] [place] [address] ELECTROCARDIOGRAM REPORT Name: RAUL SAVAGE Room #: 210-P ADM IN M.R.#: [id number] Admission: 11/02/17 Attend Phys: Fiordaliza Clement Discharge: Date of : 31 Report #: [id number] THIS REPORT FOR: //name// [facility] Test Date: 2017-11-02 Test Time: 09:13:37 Pat Name: RAUL SAVAGE Department: Room: 210 P Gender: M Director Of Marketing Analytics: RUIZ : 1930 Requested By: Ed Graff Order Number: [id number] MD: Ed Graff Measurements Intervals [place] Rate: 71 P: 47 LA: 184 QRS: -65 QRSD: 132 T: 129 QT: 440 QTc: 479 Interpretive Statements Sinus rhythm Leftward axis Left bundle branch block Compared to ECG 06/03/2016 06:50:42 No significant changes Electronically Signed On 11-03-2017 8:44:43 CDT by Ed Graff [email or web address] <ELECTRONICALLY SIGNED> By: Ed Graff MD, [facility] 11/03/17 0844 2 Ed Graff MD, [facility] /EPI
--- NOTE | ~2017-11-01 | H ---
[facility] [place] [address] [place] [address] HISTORY AND PHYSICAL Name: RAUL SAVAGE Room #: 210-P ADM IN M.R.#: [id number] Admission: 11/02/17 Attend Phys: Fiordaliza Clement Discharge: Date of : 31 Report #: [id number] THIS REPORT FOR: //name// CC: Farhat Freed CHIEF COMPLAINT: Chest pain. HISTORY OF PRESENT ILLNESS: The patient is an 87-year-old gentleman, who presented to the Emergency Room last night with chest pain and apparent syncopal episode. He said he has been experiencing exertional chest pain that is relieved by rest, for about the last month or so. Last night, he went to the bathroom and on his way back to his chair, became dizzy and collapsed with just brief, maybe a minute of loss of consciousness. He was experiencing some chest tightness and was brought to the Emergency Room. He has undergone a cardiac catheterization with stent placement this morning. PAST MEDICAL HISTORY: Coronary artery disease, hypertension, diabetes type 2, has had cardiac bypass approximately a year ago. PAST SURGICAL HISTORY: As above. FAMILY HISTORY: Noncontributory. SOCIAL HISTORY: He is , lives with his at home. No chronic alcohol or tobacco use. ALLERGIES: ERYTHROMYCIN. MEDICATIONS: Metoprolol, Tylenol, aspirin, Imdur, Prilosec, multivitamin, Levoxyl, Lipitor, glyburide and Ranexa. REVIEW OF SYSTEMS: He denies headache, chest pain, shortness of breath, abdominal pain, nausea, vomiting, diarrhea, constipation. OBJECTIVE: VITAL SIGNS: Temperature 36.7, pulse , respiration 12, blood pressure 119/64. GENERAL: He is awake and alert, in no distress. LUNGS: Clear. HEART: Regular. ABDOMEN: Soft, normoactive bowel sounds. EXTREMITIES: No edema. ASSESSMENT: 1. Non-ST elevation myocardial infarction. 2. Coronary artery disease. 3. Diabetes type 2. [facility] [address] [place] [address] HISTORY AND PHYSICAL Name: RAUL SAVAGE Room #: 210-P [facility] IN M.R.#: [id number] Admission: 11/02/17 Attend Phys: Fiordaliza Clement Discharge: Date of : 31 Report #: [id number] PLAN: I will continue with post cardiac catheterization care following a stent, reviewed Dr. Graff's notes. Home cardiac medications to continue as well. We will hold off on Celebrex for now for slightly elevated creatinine. <ELECTRONICALLY SIGNED> By: Lemuel Gomez MD 11/03/17 1003 1117 1134 Lemuel Gomez MD /nt
[2017-11-01 23:05] VITALS: BP 152/73
[2017-11-01] MEDS ORDERED: CELECOXIB200 MG PO (23:17)
[2017-11-01] MEDS ORDERED: IMDUR 30 MG TAB30 M1 PO (23:17)
[2017-11-01] MEDS ORDERED: PRILOSEC 20 MG20 MG PO (23:18)
[2017-11-01] MEDS ORDERED: RANEXA500 MG PO (23:18)
[2017-11-01] MEDS ORDERED: MULTIVITAMINS1 EAC7 PO (23:19)
[2017-11-02 00:06] LABS: ABSOLUTE NEUTROPHILS 5.6 thou/uL (1.4-8.2); BASOPHILS 0.5 % (0.0-2.0); EOSINOPHILS 6.1 % (0.0-3.0); LYMPHOCYTES 16.1 % (24.0-44.0); MCH 33.3 pg (26.0-34.0); MCV 95.1 fL (80.0-100.0); MONOCYTES 10.9 % (1.0-8.0); PLATELET COUNT 153 thou/uL (150-400); POLYS 66.4 % (36.0-66.0); RBC 3.89 mil/uL (4.50-6.00); RDW 12.8 % (10.5-14.5); WBC 8.4 thou/uL (4.0-11.0)
[2017-11-02 00:18] LABS: CALCIUM 8.7 mg/dL (8.5-10.1); CREATININE 1.7 mg/dL (0.7-1.3); POTASSIUM 4.3 mmol/L (3.5-5.1)
[2017-11-02 00:23] LABS: ALBUMIN 3.6 g/dL (3.4-5.0); MAGNESIUM 1.8 mg/dL (1.8-2.4); TOTAL BILIRUBIN 0.5 mg/dL (<0.1-1.0); TOTAL PROTEIN 7.1 g/dL (6.4-8.2)
[2017-11-02 00:28] LABS: TROPONIN-I 1.77 ng/mL (<0.06)
[2017-11-02 00:32] LABS: APTT 25.7 Seconds (24.5-32.8); PROTIME 10.5 Seconds (9.3-11.4)
[2017-11-02 01:02] VITALS: BP 128/60
[2017-11-02 03:28] VITALS: BP 139/72
[2017-11-02 03:45] LABS: URINE BILIRUBIN NEGATIVE (Negative); URINE BLOOD NEGATIVE (Negative); URINE CLARITY CLEAR; URINE COLOR YELLOW; URINE GLUCOSE-RANDOM* NEGATIVE (Negative); URINE KETONES NEGATIVE (Negative); URINE LEUKOCYTES NEGATIVE (Negative); URINE NITRITE NEGATIVE (Negative); URINE PROTEIN (DIPSTICK) NEGATIVE (Negative); URINE SPECIFIC GRAVITY <= 1.005 (1.005-1.035); URINE UROBILINOGEN 0.2 E.U./dl (0.2-1.0)
[2017-11-02 06:07] LABS: HEMATOCRIT 38.1 % (42.0-52.0); HEMOGLOBIN 13.2 gm/dL (14.0-18.0); MCH 33.3 pg (26.0-34.0); MCHC 34.6 g/dL (28.0-37.0); MCV 96.3 fL (80.0-100.0); RBC 3.96 mil/uL (4.50-6.00); RDW 12.7 % (10.5-14.5); WBC 8.9 thou/uL (4.0-11.0)
[2017-11-02 06:15] LABS: PROTIME 10.7 Seconds (9.3-11.4)
[2017-11-02 06:28] LABS: APTT 55.3 Seconds (24.5-32.8)
[2017-11-02 09:07] VITALS: BP 119/64
[2017-11-02 11:00] VITALS: BP 122/84
[2017-11-02 16:19] VITALS: BP 135/75
[2017-11-02 19:55] VITALS: BP 134/66
[2017-11-03 03:59] LABS: ALBUMIN 3.5 g/dL (3.4-5.0); ANION GAP 9 mmol/L (7-16); BUN 21 mg/dL (7-18); CALCIUM 8.9 mg/dL (8.5-10.1); CHLORIDE 104 mmol/L (98-107); CHOLESTEROL 115 mg/dL (<200); CO2 25 mmol/L (21-32); CREATININE 1.5 mg/dL (0.7-1.3); GLUCOSE 140 mg/dL (74-106); HDL CHOLESTEROL 37 mg/dL (>40); LDL CHOLESTEROL 46 mg/dL (<100); POTASSIUM 4.4 mmol/L (3.5-5.1); SGOT 32 U/L (15-37); SGPT 23 U/L (30-65); SODIUM 138 mmol/L (136-145); TC:HDL 3.1 Ratio (Not establshd); TOTAL BILIRUBIN 1.2 mg/dL (<0.1-1.0); TOTAL PROTEIN 6.9 g/dL (6.4-8.2); TRIGLYCERIDE 164 mg/dL (<150); VLDL 33 mg/dL (<40)
[2017-11-03 04:00] LABS: HEMATOCRIT 37.9 % (42.0-52.0); HEMOGLOBIN 13.4 gm/dL (14.0-18.0); MCH 33.7 pg (26.0-34.0); MCHC 35.2 g/dL (28.0-37.0); MCV 95.7 fL (80.0-100.0); RBC 3.97 mil/uL (4.50-6.00); RDW 12.7 % (10.5-14.5); WBC 8.2 thou/uL (4.0-11.0)
[2017-11-03 04:02] LABS: SERUM ASSESSMENT Clear
[2017-11-03 04:03] LABS: TROPONIN-I 3.23 ng/mL (<0.06)
[2017-11-03 04:42] VITALS: BP 123/60
[2017-11-03 07:51] VITALS: BP 123/66
[2017-11-03] MEDS ORDERED: BRILINTA90 MG PO (10:34)
[2017-11-03 10:47] VITALS: BP 123/66
[2017-11-03 11:16] VITALS: BP 106/59
== END 2017-11-03 12:22 | disposition home or self-care (01) | DRG 246 ==
LOC: ER 23:04 → 2N 11-02 00:52 → EROBS 11-02 00:52 → 2N 11-02 01:21 → ENTRNSPT 11-03 12:10 → EDTRNSPTSTS 11-03 12:15 → 2N 11-03 12:22
PROVIDERS: Emergency Medicine; Internal Medicine
PROC: 027034Z Dilation of Coronary Artery, One Artery with Drug-eluting Intraluminal Device, Percutaneous Approach (ICD-10-PCS; principal; 2017-11-03)
PROC: B211YZZ Fluoroscopy of Multiple Coronary Arteries using Other Contrast (ICD-10-PCS; principal; 2017-11-03)
PROC: B213YZZ Fluoroscopy of Multiple Coronary Artery Bypass Grafts using Other Contrast (ICD-10-PCS; principal; 2017-11-03)
PROC: 4A023N7 Measurement of Cardiac Sampling and Pressure, Left Heart, Percutaneous Approach (ICD-10-PCS; principal; 2017-11-03)
DX: I21.4 Non-ST elevation (NSTEMI) myocardial infarction (principal); I50.23 Acute on chronic systolic (congestive) heart failure; I13.0 Hypertensive heart and chronic kidney disease with heart failure and stage 1 through stage 4 chronic kidney disease, or unspecified chronic kidney disease; I24.9 Acute ischemic heart disease, unspecified; E78.5 Hyperlipidemia, unspecified; E03.9 Hypothyroidism, unspecified; E11.22 Type 2 diabetes mellitus with diabetic chronic kidney disease; N18.9 Chronic kidney disease, unspecified; I25.10 Atherosclerotic heart disease of native coronary artery without angina pectoris; I25.5 Ischemic cardiomyopathy; K21.9 Gastro-esophageal reflux disease without esophagitis; Z95.1 Presence of aortocoronary bypass graft; Z95.5 Presence of coronary angioplasty implant and graft; Z88.1 Allergy status to other antibiotic agents; Z79.82 Long term (current) use of aspirin; Z79.899 Other long term (current) drug therapy
CPT/HCPCS: 10081

== ENCOUNTER 2018-01-30 06:34 | Observation (INO) | payer OTHER ==
[2018-01-30] VITALS (11 sets, daily range): BP systolic 103–134; BP diastolic 52–67
[~2018-01-30] VITALS: Ht 175.3 cm; Wt 90.9 kg
--- NOTE | ~2018-01-30 | EKG ---
[place] [address] [facility] [place] [address] ELECTROCARDIOGRAM REPORT Name: RAUL SAVAGE Room #: 205-[facility] M.R.#: [id number] Admission: 01/30/18 Attend Phys: Ed Graff MD, Discharge: Date of : 31 Report #: [id number] THIS REPORT FOR: //name// [facility] Test Date: 2018-01-31 Test Time: 07:15:35 Pat Name: RAUL SAVAGE Department: Room: 205 P Gender: M Tape Librarian: RUIZ : 1930 Requested By: Ed Graff Order Number: [id number] MD: Ed Graff Measurements Intervals [place] Rate: 63 P: 0 NC: 110 QRS: -71 QRSD: 134 T: 112 QT: 429 QTc: 440 Interpretive Statements Sinus rhythm Borderline short NC interval Nonspecific IVCD with LAD Poor R wave progression Nonspecific ST and T wave abnormality Compared to ECG 01/30/2018 09:26:24 Lateral T wave abnormality is less prominent Electronically Signed On 01-31-2018 9:20:13 CDT by Ed Graff [email or web address] <ELECTRONICALLY SIGNED> By: Ed Graff MD, FACC 01/31/18 0920 4 4 Ed Graff MD, [facility] /EPI
--- NOTE | ~2018-01-30 | CATHLAB ---
[facility] [address] [place] [address] INVASIVE PROCEDURE REPORT Name: RAUL SAVAGE Room #: 205-P [facility] IN ..#: [id number] Admission: 01/30/18 Attend Phys: Ed Graff, Discharge: Date of : 31 Date of Service: 01/30/18 1247 Report #: [id number] THIS REPORT FOR: //name// APPROVED REPORT Study performed: 01/30/2018 07:44:31 Patient Details Patient Status: Out-Patient Room #: The patient is a 87 year-old male Event Personnel Ed Graff Coal Chemist, Jossy Bejarano, Lemuel Hay Knisely, Ceola RN nutrition faculty member Performed Art Access - R femoral artery* 79453 Initial Mod Sed Same Phys/QHP Gr5y 019222 01511 Mod Sed Same Phys/QHP Ea 444607 Left Heart Cath Coronaries, Bypass Grafts 3370659 LHCCORCABG PTCA Single Vessel OM 5810201 PC[address]LE MARIANO Place w/wo Plasty Single CIRC 064380 Hemostasis w/ Mynx Indication Unstable angina (>72 hrs to = 7 days), Chest pain Procedure Narrative The patient was brought electively to the Cardiac Catheterization Laboratory and was prepped and draped in a sterile manner. The Right Groin^ was infiltrated with 1% Lidocaine subcutaneous anesthesia. A PINNACLE 6FR Sheath #[id number] sheath was inserted into the RFA^. Coronary angiography was performed using coronary diagnostic catheters. The right coronary system was accessed and visualized with a JR 4 catheter. The left coronary system was accessed and visualized with a JL 3.5 catheter. The left ventricle was accessed and visualized with a Pigtail catheter. Left ventricular/Aortic Valve gradient assessed via catheter pullback. Left ventriculogram was performed in [place] projection. Closure device was deployed with a 6 Fr Mynx. The patient tolerated the procedure well and there were no complications associated with the procedure. There was no hematoma. Intraoperative Conscious Sedation Sedation start time: 07:45 Case end Time: 09:02 Fentanyl 25 mcg Versed 1.[address] [address] INVASIVE PROCEDURE REPORT Name: JANETTERAUL Room #: 205-P [facility]#: [id number] Admission: 01/30/18 Attend Phys: Ed Graff, Discharge: Date of : 31 Date of Service: 01/30/18 1247 Report #: [id number] Fluoro Time: 19.10 minutes Dose: DAP 58306.00 cGycm2 2479 mGy Contrast Type and Amount: Visipaque 265 ml Coronary Angiography The patient's coronary anatomy is left dominant. Diagnostic Cath Left Main 85% distal left main stenosis LAD The LAD is occluded at the first septal perforating branch. Patent left internal mammary to the LAD Circumflex Critical 99% ostial stenosis of the dominant circumflex. ELIECER 1 flow. Severe proximal anastomotic site stenosis of the sequential vein graft from the D1 to OM branch Right Coronary The right coronary was relatively small, nondominant with scattered 40-50% proximal and mid right coronary stenoses. Occluded vein graft to the distal right coronary Left Ventriculography The left ventricle is normal in size with normal contractility. The left ventricular ejection fraction is estimated to be 50-55%. Left ventricular wall motion abnormalities are present. There is 1+ mitral insufficiency. Mild hypokinesis involving the base of the inferior wall Hemodynamics The aortic pressure is 114/50 mmHg with a mean of 76 mmHg. The left ventricular pressure is 121/4 mmHg with a mean of mmHg. The left ventricular end diastolic pressure is 20 mmHg. PCI Technique Lesion Anticoagulation was achieved with Heparin, Integrilin. Patient was preloaded with Brillinta. Percutaneous coronary intervention was performed on the Ostium of sequential SVG to D1 then OM. The lesion stenosis prior to intervention was 85% with ELIECER 3 flow. A LAUNCHER 6FR JR 4 #[id number] Guide Catheter was used to engage the ostium. A Luge Wire .014 x 182CM #[id number] Interventional Guidewire was used to cross the lesion. BALLOON DILATION A Balloon catheter TREK NC RX 3.5 X 12 #[id number] was inserted and inflated up to 22.00atm for 91seconds. Repeat angiography revealed [facility] [address] [place] [address] INVASIVE PROCEDURE REPORT Name: RAUL SAVAGE Room #: 205-P [facility] IN ..#: [id number] Admission: 01/30/18 Attend Phys: Ed Graff, Discharge: Date of : 31 Date of Service: 01/30/18 1247 Report #: [id number] the following post-dilatation results: Mild extrinsic compression from or near vein marker despite multiple high pressure inflations (10-20%). Additional Inflation: 22.00atm for 69seconds. Additional Inflation: 22.00atm for 124seconds. PCI Technique Lesion 2 Percutaneous Coronary Intervention was performed on the proximal circumflex artery segment. The lesion stenosis prior to intervention was 99% with ELIECER 1 flow. A LAUNCHER 6FR EBU 3.5 #855893 Guide Catheter was used to engage the ostium. A Luge Wire .014 x 182CM #[id number] Interventional Guidewire was used to cross the lesion. Balloon Dilation A Balloon catheter Euphora RX 3.0 x 15 #[id number] was inserted and inflated up to 14.00atm for 21seconds. Repeat angiography revealed the following post-dilatation results: moderate residual stenosis; ELIECER-3 flow restored. Additional Inflation: 10.00atm for 36seconds. Stent Deployment A drug-eluting stent RESOLUTE SHA RX 3.5 X 18 #[id number] was inserted and inflated up to 14.00atm for 31seconds. Post Stent Deployment Balloon Dilation A Balloon catheter TREK NC RX 3.5 X 15 #[id number] was inserted and inflated up to 18.00atm for 43seconds. Additional Inflation: 22.00atm for 50seconds. Additional Inflation: 22.00atm for 30seconds. Final angiography reveals 0 % stenosis with ELIECER 3 flow. Conclusion 1. Severe [place] coronary artery disease. Circumflex dominant 2. Patent left internal mammary to LAD 3. Severe intrastent stenosis in the ostial portion of the sequential vein graft to the D1 and OM branch, successfully treated with multiple high pressure inflations (3.5mm NC). Mild 10-20% what appears to be extrinsic compression in the midportion of this vein at or near vein marker 4. Successful stenting of the proximal circumflex (3.5 x 18mm Resolute stent), post dilated to 3.8mm 5. Mild left ventricular dysfunction with minimal inferobasal hypokinesis. EF 50% Recommendations [facility] [address] [place] [address] INVASIVE PROCEDURE REPORT Name: RAUL SAVAGE Room #: 205-P ADM IN M.R.#: [id number] Admission: 01/30/18 Attend Phys: dE Graff, Discharge: Date of : 31 Date of Service: 01/30/18 1247 Report #: [id number] Cardiac Rehabilitation Referral Aggressive Medical Therapy <ELECTRONICALLY SIGNED> By: Ed Graff MD, FACC 01/30/18 1247 1247 46 Ed Graff MD, FACC /INF
--- NOTE | ~2018-01-30 | EKG ---
[address] [address] ELECTROCARDIOGRAM REPORT Name: RAUL SAVAGE Room #: 205-P [facility].R.#: [id number] Admission: 01/30/18 Attend Phys: Ed Graff MD, Discharge: Date of : 31 Report #: [id number] THIS REPORT FOR: //name// [facility] Test Date: 2018-01-30 Test Time: 07:34:11 Pat Name: RAUL SAVAGE Department: Room: [facility] Gender: M Upholstery Cutter: RUIZ : 1930 Requested By: Ed Graff Order Number: [id number] MD: Wilfredo Cardoso Measurements Intervals [place] Rate: 61 P: 52 LA: 167 QRS: -71 QRSD: 137 T: 132 QT: 433 QTc: 437 Interpretive Statements Sinus rhythm Left bundle branch block Compared to ECG 11/03/2017 06:29:25 No significant changes Electronically Signed On 01-30-2018 17:13:42 CDT by Wilfredo Cardoso [email or web address] <ELECTRONICALLY SIGNED> By: Wilfredo Cardoso MD 01/30/18 1713 3 3 Wilfredo Cardoso MD /PEG
--- NOTE | ~2018-01-30 | EKG ---
[address] [address] ELECTROCARDIOGRAM REPORT Name: RAUL SAVAGE Room #: 205-P [facility].R.#: [id number] Admission: 01/30/18 Attend Phys: Ed Graff MD, Discharge: Date of : 31 Report #: [id number] THIS REPORT FOR: //name// [facility] Test Date: 2018-01-30 Test Time: 09:26:24 Pat Name: RAUL SAVAGE Department: Room: [facility] Gender: M Quantometer Operator: Ashley SANTIZO : 1930 Requested By: Ed Graff Order Number: [id number] MD: Wilfredo Cardoso Measurements Intervals [place] Rate: 58 P: 46 FL: 174 QRS: -69 QRSD: 132 T: 171 QT: 461 QTc: 453 Interpretive Statements Sinus rhythm Left bundle branch block Compared to ECG 11/03/2017 06:29:25 No significant changes Electronically Signed On 01-30-2018 17:16:07 CDT by Wilfredo Cardoso [email or web address] <ELECTRONICALLY SIGNED> By: Wilfredo Cardoso MD 01/30/18 171 5 5 Wilfredo Cardoso MD /PEG
--- NOTE | ~2018-01-30 | D ---
[facility] [place] [address] [place] [address] DISCHARGE SUMMARY Name: RAUL SAVAGE Room #: 205-P [facility] [place]#: [id number] Admission: 01/30/18 Attend Phys: Ed Graff MD, Discharge: Date of : 31 Report #: [id number] THIS REPORT FOR: //name// CC: Farhat Graff [facility] DISCHARGE DIAGNOSES: 1. Progressive angina. 2. Severe [place] coronary artery disease with angioplasty of the sequential vein graft to the first diagonal and distal marginal branch (3.6 mm). 3. Successful stenting of the proximal circumflex with a 3.5 x 18 mm Resolute medicated stent, postdilated to 3.8 mm. 4. Hypertension. 5. Diabetes. 6. Mild ischemic cardiomyopathy. 7. History of prior bypass. 8. Chronic kidney disease. HISTORY OF PRESENT ILLNESS: For the complete details of the history of present illness, see dictated history and physical. Briefly, the patient is an 87-year-old gentleman with a history of fairly recent bypass surgery. In October of this year he was found to have severe disease at the ostium of the sequential vein graft to the first diagonal and marginal branch. The MENDEZ was intact and the vein graft to the right coronary, which was nondominant, was occluded. He underwent stenting of this ostium of the sequential vein graft with a 3.0 x 15 mm Resolute stent, postdilated to about 3.5 mm. The patient now presents with recurrent progressive midsternal chest pressure consistent with recurrent angina. He was taken to coronary angiography. HOSPITAL COURSE: The patient underwent repeat angiography. Severe [place] 3-vessel coronary artery disease in a left dominant circulation was identified. The LAD was occluded with a patent left internal mammary to the LAD. There was a sequential vein graft to the first diagonal then distal marginal branch with a severe proximal SVG intrastent stenosis evident. There appeared to be extrinsic compression of the mid portion of the stent, possibly from a vein marker. Multiple high pressure inflations were performed with a 3.5 mm noncompliant balloon. There was minimal residual waist evident. Attention was then turned to the [place] circumflex, which was stented with a 3.5 x 18 mm Resolute stent. This was postdilated to 3.8 mm with a noncompliant balloon. The patient's clinical course was uneventful. He was treated with heparin, Integrilin, aspirin and ticagrelor in the periprocedural setting. He was ambulating and pain free at the time of discharge. DISCHARGE MEDICATION: Discharge medicines were reconciled. Discharge medicines include atorvastatin 40 mg daily, levothyroxine 50 mcg daily, ticagrelor 90 mg twice daily, aspirin 81 mg daily, metoprolol succinate 50 mg daily, [place] [address] DISCHARGE SUMMARY Name: RAUL SAVAGE Room #: 205-P [facility] Yuri Vinson#: [id number] Admission: 01/30/18 Attend Phys: Ed Graff MD, Discharge: Date of : 31 Report #: [id number] needed, glyburide 10 mg twice daily. ACTIVITIES: Instructed as per post-angiogram. DISCHARGE DIET: Low fat, low cholesterol, carb controlled diet. FOLLOWUP: Follow up arrangements with Dr. Lemuel Gomez and Olman Freed as directed. Follow up with myself in 4-6 weeks. DISCHARGE CONDITION: Stable and improved. By: 1257 1310 Ed Graff MD, FACC /nt
[~2018-01-30 06:34] MED LIST changes: +BRILINTA90 MG PO; +CELECOXIB200 MG PO; +IMDUR 30 MG TAB30 M1 PO; +MULTIVITAMINS1 EAC7 PO; +PRILOSEC 20 MG20 MG PO; +RANEXA500 MG PO
[2018-01-30] MEDS ORDERED: CELEBREX 200 M200 M1 PO (07:13)
[2018-01-30] MEDS ORDERED: OMEPRAZOLE20 M2 PO (07:14)
[2018-01-31 00:35] VITALS: BP 134/67
[2018-01-31 03:59] LABS: HEMOGLOBIN 13.3 gm/dL (14.0-18.0); MCH 33.3 pg (26.0-34.0); WBC 8.7 thou/uL (4.0-11.0)
[2018-01-31 04:28] LABS: ALBUMIN 3.5 g/dL (3.4-5.0); CALCIUM 8.9 mg/dL (8.5-10.1); CREATININE 1.4 mg/dL (0.7-1.3); POTASSIUM 4.3 mmol/L (3.5-5.1); TOTAL BILIRUBIN 0.9 mg/dL (<0.1-1.0); TOTAL PROTEIN 7.2 g/dL (6.4-8.2); TROPONIN-I 0.23 ng/mL (<0.06)
[2018-01-31 04:34] VITALS: BP 134/59
[2018-01-31 04:40] VITALS: BP 134/59
[2018-01-31 07:43] VITALS: BP 132/54
[2018-01-31 09:52] VITALS: BP 132/54
== END 2018-01-31 11:10 | disposition home or self-care (01) ==
LOC: CATH 06:34 → 2N 11:41 → ENTRNSPT 01-31 10:39 → EDTRNSPTSTS 01-31 10:45 → 2N 01-31 11:10
PROVIDERS: Internal Medicine
DX: I25.110 Atherosclerotic heart disease of native coronary artery with unstable angina pectoris (principal); I25.5 Ischemic cardiomyopathy; I13.10 Hypertensive heart and chronic kidney disease without heart failure, with stage 1 through stage 4 chronic kidney disease, or unspecified chronic kidney disease; E11.22 Type 2 diabetes mellitus with diabetic chronic kidney disease; N18.9 Chronic kidney disease, unspecified; Z79.82 Long term (current) use of aspirin; Z95.1 Presence of aortocoronary bypass graft

== ENCOUNTER → 2019-05-24 | Outpatient (CLI) | payer OTHER | LOC: SJCVC 11:04 | DX: I45.4 Nonspecific intraventricular block (principal); I25.10 Atherosclerotic heart disease of native coronary artery without angina pectoris; R94.31 Abnormal electrocardiogram [ECG] [EKG]; I10 Essential (primary) hypertension; I65.23 Occlusion and stenosis of bilateral carotid arteries; E78.5 Hyperlipidemia, unspecified; E03.9 Hypothyroidism, unspecified; K21.9 Gastro-esophageal reflux disease without esophagitis; E78.00 Pure hypercholesterolemia, unspecified; Z79.82 Long term (current) use of aspirin; Z79.899 Other long term (current) drug therapy; Z82.49 Family history of ischemic heart disease and other diseases of the circulatory system; Z98.890 Other specified postprocedural states; Z95.1 Presence of aortocoronary bypass graft ==